=== PATIENT | female | born 1970 | race American Indian/Alaskan Native ===

== ENCOUNTER 2021-12-28 11:07 | Day surgery (SDC) | payer MEDICARE ==
[~2021-12-28 11:07] MED LIST: SODIUM CHLORIDE 0.9% 1000 ML 1,000 ML IV SCH
--- NOTE | 2021-12-28 11:43 | Anesthesia Consultation ---
Anesthesia Consult and Med Hx Date of service: 12/28/21 - Airway Anesthetic Teeth Evaluation: Good ROM Head & Neck: Adequate Mental/Hyoid Distance: Adequate Mallampati Class: Class III Intubation Access Assessment: Possibly Difficult - Pulmonary Exam CTA: Yes - Cardiac Exam Cardiac Exam: RRR - Pre-Operative Health Status ASA Pre-Surgery Classification: ASA3 Proposed Anesthetic Plan: MAC - Pulmonary Hx Asthma: Yes Hx Sleep Apnea: Yes (no cpap) - Cardiovascular System Hx Hypertension: Yes - Central Nervous System Hx Seizures: No CVA: No - Gastrointestinal Hx Gastroesophageal Reflux Disease: Yes - Endocrine Hx Non-Insulin Dependent Diabetes: Yes - Other Systems Hx Obesity: Yes - Additional Comments Anesthesia Medical History Comments: Multiple sclerosis.
--- NOTE | 2021-12-28 11:43 | Anesthesia Day of Surgery ---
Anesthesia Day of Surgery - Day of Surgery Patient Examined: Yes Patient H&P Reviewed: Yes Patient is NPO: Yes
[2021-12-28] MEDS ORDERED: LIDOCAINE MPF (2%) 20 MG/1 ML VIAL 5 ML ONE (11:45)
[2021-12-28] MEDS ORDERED: propofoL 200 MG/20 ML VIAL IV ONE (11:45)
--- NOTE | 2021-12-28 12:08 | Short Stay Summary ---
Short Stay Documentation Date of service: 12/28/21 Narrative H&P: The patient presents for EGD to evaluate chronic GERD. Gastric bypass surgery is planned. - History Past Medical History: GERD, other (Morbid obesity, ashma) Past Surgical History: cholecystectomy, Social history: no significant social history, lives with family - Allergies and Medications Current Medications: Allergies No Known Allergies Allergy (Unverified 12/27/21 12:50) Home Medications Medication Instructions Recorded Confirmed Last Taken Type Adults Multivitamin Tablet 12/27/21 Unknown History Famotidine 12/27/21 Unknown History Gabapentin 12/27/21 Unknown History Lisinopril 12/27/21 Unknown History Meloxicam 12/27/21 Unknown History Omeprazole 12/27/21 Unknown History Oxybutynin Chloride 12/27/21 Unknown History Potassium Chloride 12/27/21 Unknown History Pregabalin 12/27/21 Unknown History Sertraline 12/27/21 Unknown History Vitamin B-12 12/27/21 Unknown History Vitamin D3 12/27/21 Unknown History buPROPion HCL [Bupropion HCl Sr] 150 mg PO 12/27/21 Unknown History hydroCHLOROthiazide [HCTZ] 12/27/21 Unknown History metFORMIN 12/27/21 Unknown History risperiDONE [RisperDAL] 12/27/21 Unknown History traMADoL 12/27/21 Unknown History traZODone [Desyrel] 12/27/21 Unknown History Active Medications Sodium Chloride (Nacl 0.9% 1000 Ml) 1,000 mls @ 50 mls/hr IV DIRECT RACH - Physical exam General appearance: no acute distress, well-nourished, obese Integumentary: no rash, no growths, no abnormal pigmentation HEENT: Atraumatic, PERRLA, EOMI, Mucous membr. moist/pink Lungs: Clear to auscultation, Normal air movement Heart: Regular rate, Normal S1, Normal S2, No murmurs Gastrointestinal: normoactive bowel sounds, no tenderness, no distended, no masses, no organomegaly, no hepatomegaly, no splenomegaly, obese Female Genitourinary: deferred Rectal Exam: deferred Extremities: no ischemia, pulses intact, pulses symmetrical, No edema, normal temperature, normal color, Full ROM Neurological: Normal gait, Normal speech, Strength at 5/5 X4 ext, Normal tone, Sensation intact, Cranial nerves 3-12 NL - Brief post op/procedure progress note Date of procedure: 12/28/21 Findings: see dictation Estimated blood loss: none Pathology: none Condition: stable - Disposition Condition at discharge: Good Disposition: 01 HOME / SELF CARE / HOMELESS - Discharge Diagnoses (1) GERD (gastroesophageal reflux disease) Status: Acute (2) Morbid obesity with BMI of 60.0-69.9, adult Status: Acute Short Stay Discharge Plan Follow up with: GONZALO SAWYER MD [Primary Care Provider] - 7 Days
--- NOTE | 2021-12-28 12:10 | Operative Report ---
Operative Report Operative Report: Date of procedure: 12/28/2021 Procedure: Esophagogastroduodenoscopy Preprocedure diagnosis: Chronic gastroesophageal reflux, rule out Damian's, hiatus hernia Post procedure diagnosis: Normal study Endoscopist: Dr. Del Cid Anesthesia: Monitored anesthesia care per anesthesia department Medications: Propofol per anesthesia Estimated blood loss: 0 After careful discussion of the nature and purpose of the procedure as well as details the technique risks benefits and alternatives consent was obtained. The patient was placed in the left lateral decubitus position and medicated per anesthesia. The tip of the [employer] EQ 570 video scope was passed per orum under direct vision into the esophagus and advanced into the stomach and descending duodenum. The descending duodenum the duodenal bulb and pylorus were symmetrical and normal. The scope was withdrawn into the stomach and the stomach then gently insufflated with air. The antrum was normal. The stomach was further insufflated and the scope was then retroflexed and partially withdrawn. The cardia, fundus, and body of the stomach were within normal limits and easily distensible.The scope was then withdrawn in the forward position. The esophagogastric junction was at 36 cm. The esophageal body was normal throughout. The procedure was was well tolerated and the patient was observed in recovery. Impressions: Normal-appearing upper digestive tract. No evidence of Damian's, peptic disease or hiatus hernia. Plan: Continue PPI therapy, diet and lifestyle measures Electronically signed: Jenaro Del Cid MD
[2021-12-28 16:16] VITALS: BP 138/70
--- NOTE | 2021-12-28 23:40 | Post Anesthesia Evaluation ---
- Post Anesthesia Evaluation Patient Participated: Yes Airway Patent: Yes Stable Respiratory Function: Yes Nausea/Vomiting: No Temp > 96.8F: Yes Pain Manageable: Yes Adequeate Hydration: Yes Anesthesia Complications: No Block Receding Appropriately: Not Applicable Patient on Ventilator: No
== END 2021-12-28 12:45 | disposition home or self-care (01) ==
LOC: GIO 11:07
PROVIDERS: ATTEND Internal Medicine Gastroenterology
DX: K21.9 Gastro-esophageal reflux disease without esophagitis (principal); K44.9 Diaphragmatic hernia without obstruction or gangrene; E66.01 Morbid (severe) obesity due to excess calories; I10 Essential (primary) hypertension; J45.909 Unspecified asthma, uncomplicated; G47.30 Sleep apnea, unspecified; M19.90 Unspecified osteoarthritis, unspecified site; E11.9 Type 2 diabetes mellitus without complications; F32.9 Major depressive disorder, single episode, unspecified; F41.9 Anxiety disorder, unspecified; Z68.44 Body mass index [BMI] 60.0-69.9, adult; Z79.899 Other long term (current) drug therapy
CPT/HCPCS: 43235; 82962; J2704; J3490; J7030; J7120; Q0162